=== PATIENT | female | born 1935 | race Caucasian/White ===

== ENCOUNTER 2017-06-28 12:05 | Emergency (ER) | payer MEDICARE, BC ==
[2017-06-28 12:14] VITALS: BP 143/75
--- NOTE | 2017-06-28 12:54 | EDM.PDOC ---
ED HPI GENERAL MEDICAL PROBLEM - General Chief Complaint: Lower Extremity Injury/Pain Stated Complaint: [facility] Time Seen by Provider: 06/28/17 12:23 Source of Information: Reports: Patient, EMS History Limitations: Reports: No Limitations - History of Present Illness INITIAL COMMENTS - FREE TEXT/NARRATIVE: 81-year-old female presents via [facility] ambulance service for evaluation and treatment of injuries sustained in a fall. Reportedly the patient tripped over a rug. She is unsure exactly how she fell believes she landed on her left side. She states she did not hit her head. She did not lose consciousness. She denies any headaches, nausea, vomiting, blurry vision, double vision, chest pain or shortness of breath. She is currently complaining of pain to the left distal femur. She reports pain with movement to the left leg. She denies much pain to the left hip. No treatments prior to arrival in the ER, patient refused pain medication by EMS. Patient is on Coumadin. She is on this for previous CVA several years ago. Past medical history includes hypertension, hyperlipidemia and a lung resection. Lung resection was done at [facility] in the . Left Upper Leg Pain Score (Numeric/FACES): 7 - Related Data Allergies Allergy/AdvReac Type Severity Reaction Status Date / Time povidone-iodine Allergy Rash Verified 06/28/17 12:14 [From Betadine] silver sulfadiazine Allergy Rash Verified 06/28/17 12:14 [From Silvadene] soap [From Betadine] Allergy Rash Verified 06/28/17 12:14 Home Meds: Home Meds Atenolol [Tenormin] 50 mg PO DAILY 04/30/14 [History] Furosemide [Lasix] 40 mg PO DAILY 04/30/14 [History] Lisinopril [Zestril] 20 mg PO BID 04/30/14 [History] Omeprazole 20 mg PO DAILY 04/30/14 [History] Potassium Chloride 20 meq PO DAILY 04/30/14 [History] Warfarin [Coumadin] 7.5 mg PO DAILY 04/30/14 [History] amLODIPine [Norvasc] 5 mg PO DAILY 04/30/14 [History] atorvaSTATin [Lipitor] 10 mg PO DAILY 04/30/14 [History] Past Medical History HEENT History: Reports: Impaired Vision Cardiovascular History: Reports: High Cholesterol Neurological History: Reports: CVA Endocrine/Metabolic History: Reports: Hypothyroidism, Other (See Below) Other Endocrine/Metabolic History: PRE-DIABETES - Past Surgical History HEENT Surgical History: Reports: Tonsillectomy Respiratory Surgical History: Reports: Lung Resection Musculoskeletal Surgical History: Reports: Other (See Below) Other Musculoskeletal Surgeries/Procedures:: KNEE SURGERY Social & Family History - Tobacco Use Smoking Status *Q: Light Tobacco Smoker Years of Tobacco use: 30 Packs/Tins Daily: 0.5 Used Tobacco, but Quit: Yes Month Tobacco Last Used: unknown - Alcohol Use Days Per Week of Alcohol Use: 0 - Recreational Drug Use Recreational Drug Use: No - Living Situation & Occupation Living situation: Reports: Single Occupation: Retired Review of Systems - Review of Systems Review Of Systems: See Below Eyes: Denies: Blurred Vision, Vision Change Respiratory: Denies: Shortness of Breath Cardiovascular: Denies: Chest Pain GI/Abdominal: Denies: Nausea, Vomiting Musculoskeletal: Reports: Leg Pain (left). Denies: Neck Pain Skin: Denies: Wound Neurological: Reports: Difficulty Walking (due to left leg pain). Denies: Headache, Syncope ED EXAM, GENERAL - Physical Exam Exam: See Below Exam Limited By: No Limitations General Appearance: Alert, WD/WN, No Apparent Distress Eye Exam: Bilateral Eye: EOMI, PERRL Ears: Normal External Exam Nose: Normal Inspection Throat/Mouth: Normal Inspection, Normal Voice, No Airway Compromise Head: Atraumatic, Normocephalic Neck: Normal Inspection, Non-Tender, Full Range of Motion Respiratory/Chest: No Respiratory Distress, Decreased Breath Sounds, Crackles, Wheezing Cardiovascular: Normal Peripheral Pulses, Regular Rate, Rhythm, No Murmur Peripheral Pulses: 2+: Posterior Tibial (L), Posterior Tibial (R), Dorsalis Pedis (L), Dorsalis Pedis (R) Extremities: Limited Range of Motion (left hip rotation), Other (left leg is externally rotated and slightly shortened; pain with rotation to the left hip ; tenderness to palpation to the left knee and left distal femur) Neurological: Alert, Oriented, Normal Cognition Psychiatric: Normal Affect, Normal Mood Skin Exam: Warm, Dry, Normal Color EKG INTERPRETATION EKG Date: 06/28/17 Time: 14:00 Rhythm: NSR Rate (Beats/Min): 62 [place]: LAD-Left [place] Deviation P-Wave: Present QRS: Normal ST-T: Normal QT: Normal EKG Interpretation Comments: NSR at 62 bpm. No acute changes. Reviewed by myself and Dr. Echavarria. Course - Vital Signs Last Recorded V/S: Last Vital Signs Temp 37.1 C 06/28/17 12:11 Pulse 66 06/28/17 12:11 Resp 18 06/28/17 12:11 BP 143/75 H 06/28/17 12:11 Pulse Ox 95 06/28/17 12:11 - Orders/Labs/Meds Orders: Active Orders 24 hr Category Date Time Status EKG 12 Lead [EKG Documentation Completion] [RC] STAT Care 06/28/17 13:50 Active Chest 1V Frontal [CR] Stat Exams 06/28/17 13:50 Ordered Hip Min 2V or 3V w Pelvis Lt [CR] Stat Exams 06/28/17 12:31 Taken Knee 1V or 2V Lt [CR] Stat Exams 06/28/17 12:32 Taken CBC WITH AUTO DIFF [HEME] Stat Lab 06/28/17 13:56 Results UA W/MICROSCOPIC [URIN] Stat Lab 06/28/17 13:49 Uncollected Sodium Chloride 0.9% [Normal Saline] 1,000 ml Med 06/28/17 14:15 Active IV ASDIRECTED Medication Orders Sodium Chloride (Normal Saline) 1,000 mls @ 75 mls/hr IV ASDIRECTED GLENN Last Admin: 06/28/17 14:26 Dose: 75 mls/hr Labs: Laboratory Tests 06/28/17 06/28/17 06/28/17 Range/Units 13:56 13:56 13:56 WBC 9.89 (3.98-10.04) K/mm3 RBC 4.33 (3.98-5.22) M/mm3 Hgb 12.2 (11.2-15.7) gm/L Hct 36.4 (34.1-44.9) % MCV 84.1 (79.4-94.8) fl MCH 28.2 (25.6-32.2) pg MCHC 33.5 (32.2-35.5) g/dl RDW Std Deviation 43.3 (36.4-46.3) fL Plt Count 180 L (182-369) K/mm3 MPV 9.7 (9.4-12.3) fl Neut % (Auto) 82.5 H (34.0-71.1) % Lymph % (Auto) 9.1 L (19.3-51.7) % [place] % (Auto) 7.6 (4.7-12.5) % Eos % (Auto) 0.6 L (0.7-5.8) Baso % (Auto) 0.1 (0.1-1.2) % Neut # (Auto) 8.16 H (1.56-6.13) K/mm3 Lymph # (Auto) 0.90 L (1.18-3.74) K/mm3 [place] # (Auto) 0.75 H (0.24-0.36) K/mm3 Eos # (Auto) 0.06 (0.04-0.36) K/mm3 Baso # (Auto) 0.01 (0.01-0.08) K/mm3 PT 31.0 H (8.0-13.0) SECONDS INR 2.67 APTT 41 H (22-36) SECONDS Sodium 135 L (136-145) mEq/L Potassium 3.8 (3.5-5.1) mEq/L Chloride 99 (98-107) mEq/L Carbon Dioxide 28 (21-32) mEq/L Anion Gap 11.8 (5-15) BUN 22 H (7-18) mg/dL Creatinine 1.3 H (0.55-1.02) mg/dL Est Cr Clr Drug Dosing 28.55 mL/min Estimated GFR (MDRD) 39 (>60) mL/min BUN/Creatinine Ratio 16.9 (14-18) Glucose 194 H (83-115) mg/dL Calcium 9.0 (8.5-10.1) mg/dL Total Bilirubin 0.4 (0.2-1.0) mg/dL AST 35 (15-37) U/L ALT 30 (14-59) U/L Alkaline Phosphatase 103 (46-116) U/L Total Protein 7.4 (6.4-8.2) g/dl Albumin 3.4 (3.4-5.0) g/dl Globulin 4.0 gm/dL Albumin/Globulin Ratio 0.9 L (1-2) Meds: Medications Generic Name Dose Route Start Last Admin Trade Name Freq PRN Reason Stop Dose Admin Sodium Chloride 1,000 mls @ 75 mls/hr 06/28/17 14:15 06/28/17 14:26 Normal Saline IV 75 mls/hr ASDIRECTED GLENN Administration Discontinued Medications Generic Name Dose Route Start Last Admin Trade Name Chente PRN Reason Stop Dose Admin Hydromorphone HCl 0.5 mg 06/28/17 13:45 06/28/17 13:53 Dilaudid IVPUSH 06/28/17 13:46 0.5 mg ONETIME ONE Administration - Radiology Interpretation Free Text/Narrative:: xray of the left hip and pelvis shows a trochanteric fracture. 2 view of the left knee shows no acute fractures or dislocations. chest 1 view shows a slight enlarged heart. No acute intrathoracic process. - Re-Assessments/Exams Free Text/Narrative Re-Assessment/Exam: 06/28/17 14:31 I reviewed the x-ray results with the patient. She does have a fracture of the left hip. Unfortunately we do not have orthopedics coverage she will require transfer to [place] for orthopedic intervention. She looks [facility] in [place]. I spoke with Dr. Esparza, orthopedics on-call. He agrees to see the patient. Asked that we admit to the hospital. Spoke with Dr. Carlisle, hospitalist at [facility] in [place]. He agrees to accept the patient. We'll sent by ground ambulance. Labs have returned. Blood cell count 9.89, hemoglobin 12.2 and platelets 180. PTT 31.0, INR 2.6 to. PTT 41. Sodium 135, potassium 3.8 chloride 99. Anion gap 11.8. Creatinine 1.3. Glucose 194. Patient is now requesting medication for pain. Dilaudid 0.5mg IV given. Departure - Departure Time of Disposition: 14:41 Disposition: DC/Tfer to Acute Hospital 02 Condition: Fair Clinical Impression: Fracture of hip, left, closed - Discharge Information Forms: ED Department Discharge Additional Instructions: Patient to go by ambulance to [facility] in [place]. Dr. Carlisle and Dr. Esparza accepting. - My Orders Last 24 Hours: My Active Orders 06/28/17 12:31 Hip Min 2V or 3V w Pelvis Lt [CR] Stat 06/28/17 12:32 Knee 1V or 2V Lt [CR] Stat 06/28/17 13:49 UA W/MICROSCOPIC [URIN] Stat 06/28/17 13:50 EKG 12 Lead [EKG Documentation Completion] [RC] STAT Chest 1V Frontal [CR] Stat 06/28/17 13:56 CBC WITH AUTO DIFF [HEME] Stat 06/28/17 14:15 Sodium Chloride 0.9% [Normal Saline] 1,000 ml IV ASDIRECTED - Assessment/Plan Last 24 Hours: My Active Orders 06/28/17 12:31 Hip Min 2V or 3V w Pelvis Lt [CR] Stat 06/28/17 12:32 Knee 1V or 2V Lt [CR] Stat 06/28/17 13:49 UA W/MICROSCOPIC [URIN] Stat 06/28/17 13:50 EKG 12 Lead [EKG Documentation Completion] [RC] STAT Chest 1V Frontal [CR] Stat 06/28/17 13:56 CBC WITH AUTO DIFF [HEME] Stat 06/28/17 14:15 Sodium Chloride 0.9% [Normal Saline] 1,000 ml IV ASDIRECTED
[2017-06-28] MEDS ORDERED: HYDROmorphone 0.5 MG/0.5 ML Syringe IVPUSH ONE (13:45)
[2017-06-28] MEDS ORDERED: Sodium Chloride 0.9% 1,000 ML IV SCH (14:15)
--- NOTE | 2017-06-29 13:58 | CR ---
Chest: Portable view of the chest was obtained. Comparison: Previous chest x-ray of 04/30/14. Small hiatal hernia is seen. Heart is slightly prominent. Tortuous thoracic aorta is noted. Atherosclerotic change is noted within the aortic knob. Central lung markings are mildly increased believed to be technique related. Lungs otherwise are clear. Bony structures are osteopenic. Impression: 1. Incidental findings. Nothing acute is definitely appreciated on portable chest x-ray. Diagnostic code #2
--- NOTE | 2017-06-29 13:58 | CR ---
Left knee: Lateral and AP views of the left knee were obtained. Comparison: No previous study. Positioning is suboptimal decreasing diagnostic details. Bony structures are osteoporotic. Vascular calcification is seen. No discrete fracture or other abnormality is identified. Impression: 1. Suboptimal positioning. Nothing acute is definitely identified. Diagnostic code #2
--- NOTE | 2017-06-29 13:58 | CR ---
Pelvis and left hip: AP view of the pelvis was obtained as well as AP and lateral views of the left hip. Varus angulated intertrochanteric fracture is identified within the left hip. Deformity compatible with old healed fractures are noted within the left side of the pubic symphysis. Calcified uterine fibroids are identified within the pelvis. Vascular calcification is seen. Degenerative change and mild scoliosis is present within the spine. Bony structures are osteoporotic. Impression: 1. Left hip fracture as described above. 2. Other incidental findings. Diagnostic code #3
== END 2017-06-28 15:20 ==
LOC: JD.ED 12:05
DX: S72.142A Displaced intertrochanteric fracture of left femur, initial encounter for closed fracture (principal); I10 Essential (primary) hypertension; E03.9 Hypothyroidism, unspecified; F17.210 Nicotine dependence, cigarettes, uncomplicated; E78.00 Pure hypercholesterolemia, unspecified; Z88.2 Allergy status to sulfonamides; Z91.09 Other allergy status, other than to drugs and biological substances; Z79.01 Long term (current) use of anticoagulants; Z79.899 Other long term (current) drug therapy; Z86.73 Personal history of transient ischemic attack (TIA), and cerebral infarction without residual deficits; Z98.890 Other specified postprocedural states; W01.0XXA Fall on same level from slipping, tripping and stumbling without subsequent striking against object, initial encounter
CPT/HCPCS: 36415; 51702; 71010; 73502; 73560; 80053; 81001; 85025; 85610; 85730; 93005; 96361; 96374; 99285; J1170; J7040; 99284

== ENCOUNTER 2017-12-11 23:50 | Emergency (ER) | payer MEDICARE, BC ==
--- NOTE | 2017-12-12 00:16 | EDM.PDOC ---
ED HPI GENERAL MEDICAL PROBLEM - General Chief Complaint: Neuro Symptoms/Deficits Stated Complaint: [facility] Time Seen by Provider: 12/11/17 23:53 Source of Information: Reports: EMS History Limitations: Reports: Physical Impairment - History of Present Illness INITIAL COMMENTS - FREE TEXT/NARRATIVE: The patient is brought by EMS from [facility] after being found on the floor with difficulty speaking and right-sided weakness, at 22:55 MST. Her last known normal was at 20:30 MST. According to the patient's sister, the patient is status post a stroke in 1996 or 1997, however, she recovered fully from that, and had no residual difficulty speaking or weakness. Here in the ED, the patient's BP is found to be 132/89 with a heart rate of 84, afebrile, saturating 96% on room air. She has a dysarthric speech, some confusion in following commands, and both right upper and right lower extremity weakness. No obvious facial droop, but it is difficult to tell, as the patient has difficulty following commands. Our medical records indicate that the patient was formally on Coumadin, however , it is not clear whether the patient is still on Coumadin. 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 She does not know the results of that PET scan. The patient is DNR/DNI. - Related Data Allergies Allergy/AdvReac Type Severity Reaction Status Date / Time povidone-iodine Allergy Rash Verified 06/28/17 12:14 [From Betadine] silver sulfadiazine Allergy Rash Verified 06/28/17 12:14 [From Silvadene] soap [From Betadine] Allergy Rash Verified 06/28/17 12:14 Home Meds: Home Meds Atenolol [Tenormin] 50 mg PO DAILY 04/30/14 [History] Furosemide [Lasix] 40 mg PO DAILY 04/30/14 [History] Lisinopril [Zestril] 20 mg PO BID 04/30/14 [History] Omeprazole 20 mg PO DAILY 04/30/14 [History] Potassium Chloride 20 meq PO DAILY 04/30/14 [History] Warfarin [Coumadin] 7.5 mg PO DAILY 04/30/14 [History] amLODIPine [Norvasc] 5 mg PO DAILY 04/30/14 [History] atorvaSTATin [Lipitor] 10 mg PO DAILY 04/30/14 [History] Past Medical History HEENT History: Reports: Impaired Vision Cardiovascular History: Reports: High Cholesterol Respiratory History: Reports: Other (See Below) (Right lung mass) Neurological History: Reports: CVA (1996 or 1997. No residual neurologic deficits.) Endocrine/Metabolic History: Reports: Hypothyroidism, Other (See Below) ( Prediabetes) - Past Surgical History HEENT Surgical History: Reports: Cataract Surgery (bilateral), Tonsillectomy Respiratory Surgical History: Reports: Lung Resection (right) Musculoskeletal Surgical History: Reports: Other (See Below) (Right knee open surgery) Social & Family History - Tobacco Use Smoking Status *Q: Light Tobacco Smoker Years of Tobacco use: 30 Packs/Tins Daily: 0.5 - Alcohol Use Days Per Week of Alcohol Use: 0 - Recreational Drug Use Recreational Drug Use: No - Living Situation & Occupation Living situation: Reports: Single, Extended Care Facility Occupation: Retired ED ROS GENERAL - Review of Systems Review Of Systems: ROS reveals no pertinent complaints other than HPI. ED EXAM, NEURO - Physical Exam Exam: See Below Exam Limited By: Other (Difficulty understanding commands) General Appearance: Alert, WD/WN, No Apparent Distress Eye Exam: Bilateral Eye: Normal Inspection Ears: Normal External Exam, Hearing Grossly Normal Nose: Normal Inspection, No Blood Throat/Mouth: Normal Inspection, Normal Lips, No Airway Compromise, Other (Poor dentition) Head Exam: Atraumatic, Normocephalic Neck: Normal Inspection, Full Range of Motion Respiratory/Chest: No Respiratory Distress, No Accessory Muscle Use, Decreased Breath Sounds (Right upper lung field), Rhonchi (Throughout) Cardiovascular: Normal Peripheral Pulses, Regular Rate, Rhythm, No Edema, No Gallop, No JVD, No Murmur, No Rub GI/Abdominal: Normal Bowel Sounds, Soft, Non-Tender, No Organomegaly, No Distention, No Abnormal Bruit, No Mass (Female) Exam: Deferred Rectal (Female) Exam: Deferred Neurological: Alert, Other (No obvious facial droop, however, the patient has difficulty in following directions, such as pushing her cheeks. Cranial nerves II through XII appear to be intact. Right upper extremity weakness with 1/5 strength to the hand and wrist, 3/5 strength to right upper extremity abduction , flexion and extension at the elbow. Right lower extremity weakness with 1/5 strength at hip flexion, and extension and flexion at the knee, although some of this weakness may be explained by confusion in following commands. Dorsiflexion and plantar flexion of the right foot appears to be normal. No weakness on the left. The patient denies any decreased sensation, anywhere.) Back Exam: Normal Inspection, Full Range of Motion, NT Extremities: Normal Inspection, Normal Range of Motion, Non-Tender, No Pedal Edema, Normal Capillary Refill Psychiatric: Normal Affect Skin Exam: Warm, Dry, Intact, Normal Color, No Rash EKG INTERPRETATION EKG Date: 12/11/17 Time: 23:59 Rhythm: NSR Rate (Beats/Min): 89 [place]: LAD-Left [place] Deviation P-Wave: Present (2 PAC's) QRS: Normal ST-T: Normal QT: Normal Comparison: No Change (06/28/2017) Course - Orders/Labs/Meds Orders: Active Orders 24 hr Category Date Time Status EKG Documentation Completion [RC] STAT Care 12/12/17 00:06 Active Chest 1V Frontal [CR] Stat Exams 12/12/17 00:06 Ordered Head wo Cont [CT] Stat Exams 12/11/17 23:56 Taken CBC WITH MANUAL DIFF [HEME] Stat Lab 12/12/17 00:05 Ordered COMPREHENSIVE METABOLIC PN,CMP [CHEM] Stat Lab 12/12/17 00:05 Ordered INR,PT,PROTHROMBIN TIME [COAG] Stat Lab 12/12/17 00:07 Ordered PTT,PARTIAL THROMBOPLSTIN TIME [COAG] Stat Lab 12/12/17 00:07 Ordered Labs: Laboratory Tests 12/11/17 12/11/17 Range/Units 23:59 23:59 WBC 7.83 (3.98-10.04) K/mm3 RBC 4.30 (3.98-5.22) M/mm3 Hgb 11.6 (11.2-15.7) gm/L Hct 35.8 (34.1-44.9) % MCV 83.3 (79.4-94.8) fl MCH 27.0 (25.6-32.2) pg MCHC 32.4 (32.2-35.5) g/dl RDW Std Deviation 42.6 (36.4-46.3) fL Plt Count 188 (182-369) K/mm3 MPV 10.4 (9.4-12.3) fl POC Glucose 143 H (83-110) mg/dL - Re-Assessments/Exams Free Text/Narrative Re-Assessment/Exam: 12/12/17 00:12 CT of the head without contrast is read by [facility] as "Moderate cerebral hemispheric atrophy. Moderate bilateral deep and periventricular microangiopathy. Multiple calcifications across basal ganglia indicating chronic metabolic stress. This can be seen with prior carbon monoxide poisoning or diabetes. Mild cerebellar atrophy. No hemorrhage." The CT images were pushed to [facility]. 12/12/17 00:31 [facility] contacted at 00:13. Case discussed with Dr. Gil, Neurologist at [facility] at 00:19. He states that the patient is not a candidate for tPA, but she is a candidate for intervention if she can get there within the next few hours. I discussed this with the patient and her sister, and while they are mostly noncommittal, they agreed to the transfer. Dr. Gil does not want the patient to receive any medications - no aspirin or heparin. The patient will be flown to [place] by fixed wing. 12/12/17 00:36 Portable chest radiograph reviewed. Cardiac silhouette is at the upper limits of normal. No pulmonary vascular congestion. No pleural effusions. No focal infiltrate, however, the right upper lobe is opacified, consistent with atelectasis. This is new when compared to her prior chest radiograph 2016. No pneumothorax. Formal read per the Radiologist pending. The chest radiograph image was pushed to [facility]. Departure - Departure Time of Disposition: 00:25 Disposition: DC/Tfer to Acute Hospital 02 Condition: Fair Clinical Impression: Acute ischemic stroke - Discharge Information - My Orders Last 24 Hours: My Active Orders 12/11/17 23:56 Head wo Cont [CT] Stat 12/12/17 00:05 CBC WITH MANUAL DIFF [HEME] Stat COMPREHENSIVE METABOLIC PN,CMP [CHEM] Stat 12/12/17 00:06 EKG Documentation Completion [RC] STAT Chest 1V Frontal [CR] Stat 12/12/17 00:07 INR,PT,PROTHROMBIN TIME [COAG] Stat PTT,PARTIAL THROMBOPLSTIN TIME [COAG] Stat - Assessment/Plan Last 24 Hours: My Active Orders 12/11/17 23:56 Head wo Cont [CT] Stat 12/12/17 00:05 CBC WITH MANUAL DIFF [HEME] Stat COMPREHENSIVE METABOLIC PN,CMP [CHEM] Stat 12/12/17 00:06 EKG Documentation Completion [RC] STAT Chest 1V Frontal [CR] Stat 12/12/17 00:07 INR,PT,PROTHROMBIN TIME [COAG] Stat PTT,PARTIAL THROMBOPLSTIN TIME [COAG] Stat
[2017-12-12 00:56] VITALS: BP 132/89
--- NOTE | 2017-12-12 08:40 | CT ---
Head CT Technique: Multiple axial sections through the brain were obtained. Intravenous contrast was not utilized. Comparison: No previous intracranial imaging. Findings: Ventricles along with basal cisterns and sulci over the convexities are moderately prominent. Diminished density is noted within portions of the periventricular and subcortical white matter which is compatible with small vessel ischemic demyelination change. Basal ganglia calcification is noted. Atherosclerotic calcification is seen within the vertebral vessels and within the carotid siphon. Mild atrophy is noted within the cerebellum. No other abnormal parenchymal densities are seen. No evidence of intracranial hemorrhage. No midline shift or mass effect is seen. Opacified left mastoid sinus is seen which appears sclerotic with soft tissue density being seen within the external and middle ear cavity. Chronic cholesteatoma is a possibility or other chronic infection. No acute calvarial abnormality is seen. Impression: 1. Senescent change as noted above. 2. Findings within the left mastoid sinus and middle and external ear cavities as noted above felt to be chronic. 3. No acute intracranial abnormality is identified on noncontrast head CT exam. Diagnostic code #2 I agree with preliminary report issued by [employer] ([facility] preliminary report dictated on 12/12/17, 1:08 AM Central Time)
--- NOTE | 2017-12-12 08:40 | CR ---
Chest: Portable view of the chest was obtained. Comparison: Prior chest x-ray of 06/28/17. Opacified right upper lobe is seen. Pulmonary vessels are congested. Heart is enlarged. Tortuous thoracic aorta is seen. Atherosclerotic calcification is seen within the aortic knob. Bony structures are grossly intact. Impression: 1. Opacified right upper lobe, pneumonia is a possibility as well as aspiration. 2. Cardiomegaly and mild pulmonary vascular congestion. Diagnostic code #3
== END 2017-12-12 01:20 ==
LOC: JD.ED 23:50
DX: I63.9 Cerebral infarction, unspecified (principal); E78.00 Pure hypercholesterolemia, unspecified; E03.9 Hypothyroidism, unspecified; F17.210 Nicotine dependence, cigarettes, uncomplicated; Z79.01 Long term (current) use of anticoagulants; Z79.899 Other long term (current) drug therapy; Z88.8 Allergy status to other drugs, medicaments and biological substances; Z91.048 Other nonmedicinal substance allergy status
CPT/HCPCS: 36415; 51701; 51702; 70450; 70450-26; 71045; 71045-26; 80053; 82962; 85025; 85610; 85730; 93005; 93010; 99285; 99285-25